=== PATIENT | male | born 1950 | race Caucasian/White ===

== ENCOUNTER → 2016-06-27 | Outpatient (CLI) | payer OTHER, BC ==
[~2016-06-27] MED LIST: ALLOPURINOL 10100 M1 PO; ASPIRIN325; ATENOLOL; ATENOLOL 50MG T50 M1 PO; CLARITIN-D 24 H1 TA1 PO; COLCRYS0.6 MG PO; CRESTOR; FISH OIL 1,001000 M2 PO; FISHOIL; KEFLEX500 MG PO; LISINOPRIL40 MG PO; MEDROLDOSEPACK PO; NORCO 5-325 TA1 EACH PO; PRINIVIL; TERBINAFINE HCL30 GM TOP
== END ==
LOC: OPONC 11:43
DX: L03.90 Cellulitis, unspecified (principal); D72.829 Elevated white blood cell count, unspecified
CPT/HCPCS: 95000

== ENCOUNTER → 2016-06-28 | Outpatient (CLI) | payer OTHER, BC | LOC: OPONC 11:56 | DX: L03.90 Cellulitis, unspecified (principal); D72.829 Elevated white blood cell count, unspecified | CPT/HCPCS: 95000 ==

== ENCOUNTER → 2016-07-22 | Outpatient (CLI) | payer OTHER, BC | LOC: HYPER 07:16 | DX: L97.821 Non-pressure chronic ulcer of other part of left lower leg limited to breakdown of skin (principal); L03.116 Cellulitis of left lower limb; I89.1 Lymphangitis; M10.9 Gout, unspecified; I10 Essential (primary) hypertension; I25.10 Atherosclerotic heart disease of native coronary artery without angina pectoris; I25.2 Old myocardial infarction; M19.90 Unspecified osteoarthritis, unspecified site; E78.5 Hyperlipidemia, unspecified; Z87.891 Personal history of nicotine dependence ==

== ENCOUNTER → 2021-01-09 | Outpatient (CLI) | payer OTHER, BC ==
[~2021-01-09] MED LIST changes: +ALLOPURINOL 30300 M1 PO; -ASPIRIN325; +ASPIRIN325 PO; +ATENOLOL 50MG T50 MG PO; +CEPHALEXIN500 MG PO; +CLARITIN10 MG PO; +FISH OIL 1,0001 EAC9 PO; +LAMISIL AT 1% C12 G1 TOP; +REPATHA PU420 MG/3.5 SUBQ; +TURMERIC1 GM PO; +ZESTRIL40 MG PO; +[UNRECOGNIZED DRUG - OTHER]
== END ==
LOC: SJCVCIMAG
PROVIDERS: ATTEND Internal Medicine
DX: I65.23 Occlusion and stenosis of bilateral carotid arteries (principal); I05.9 Rheumatic mitral valve disease, unspecified; I11.9 Hypertensive heart disease without heart failure; E78.5 Hyperlipidemia, unspecified; I25.10 Atherosclerotic heart disease of native coronary artery without angina pectoris

== ENCOUNTER → 2021-01-10 | Outpatient (CLI) | payer OTHER, BC ==
[~2021-01-10] MED LIST changes: +PACERONE 200 M200 M1 PO
[2021-01-10 09:01] LABS: ABSOLUTE NEUTROPHILS 3.8 thou/uL (1.4-8.2); BASOPHILS 0.6 % (0.0-2.0); EOSINOPHILS 5.4 % (0.0-3.0); HEMATOCRIT 40.4 % (42.0-52.0); HEMOGLOBIN 13.8 gm/dL (14.0-18.0); LYMPHOCYTES 27.7 % (24.0-44.0); MCH 34.3 pg (26.0-34.0); MCHC 34.1 g/dL (28.0-37.0); MCV 100.5 fL (80.0-100.0); PLATELET COUNT 172 thou/uL (150-400); POLYS 57.3 % (36.0-66.0); RBC 4.02 mil/uL (4.50-6.00); RDW 13.3 % (10.5-14.5); WBC 6.6 thou/uL (4.0-11.0)
[2021-01-10 09:07] LABS: APTT 23.5 Seconds (24.5-32.8); INR 0.96; PROTIME 10.5 Seconds (10.5-12.1)
[2021-01-10 09:30] LABS: ALBUMIN 3.4 g/dL (3.4-5.0); CALCIUM 8.7 mg/dL (8.5-10.1); CREATININE 1.1 mg/dL (0.7-1.3); POTASSIUM 4.9 mmol/L (3.5-5.1); TOTAL BILIRUBIN 0.3 mg/dL (0.2-1.0); TOTAL PROTEIN 6.8 g/dL (6.4-8.2)
[2021-01-11 01:06] LABS: GLYCOHEMOGLOBIN (HGB A1C) 5.8 % (4.8-5.6)
== END ==
LOC: PAC 08:09
PROVIDERS: ATTEND Surgery Vascular Surgery
DX: Z01.812 Encounter for preprocedural laboratory examination (principal); E11.9 Type 2 diabetes mellitus without complications; Z95.5 Presence of coronary angioplasty implant and graft; Z79.82 Long term (current) use of aspirin

== ENCOUNTER → 2021-01-10 | Outpatient (CLI) | payer OTHER, BC | LOC: ULTRA 08:25 | PROVIDERS: ATTEND Surgery Vascular Surgery | DX: Z01.818 Encounter for other preprocedural examination (principal); I25.110 Atherosclerotic heart disease of native coronary artery with unstable angina pectoris ==

== ENCOUNTER 2021-01-17 06:27 | Inpatient (IN) | payer OTHER, BC ==
[~2021-01-17] VITALS: Ht 170.2 cm; Wt 108.4 kg
[2021-01-17] VITALS (41 sets, daily range): BP systolic 119–175; BP diastolic 48–78
[~2021-01-17 06:27] MED LIST changes: -PACERONE 200 M200 M1 PO
[2021-01-17 12:43] LABS: MCH 34.6 pg (26.0-34.0); MCHC 34.2 g/dL (28.0-37.0); MCV 101.1 fL (80.0-100.0); RBC 2.67 mil/uL (4.50-6.00); RDW 13.1 % (10.5-14.5); WBC 13.3 thou/uL (4.0-11.0)
[2021-01-17 12:47] LABS: HEMOGLOBIN 9.3 gm/dL (14.0-18.0)
[2021-01-17 12:58] LABS: APTT 22.9 Seconds (24.5-32.8); INR 1.33; PROTIME 14.3 Seconds (10.5-12.1)
[2021-01-17 13:31] LABS: POC BE 0 mmol/L (-2.0 to +3.0); POC CA IONIZED 4.1 mg/dL (4.5-5.3); POC GLUCOSE 185 mg/dL (70-99); POC HCO3 25.1 mmol/L (22.0-26.0); POC HEMOGLOBIN 8.8 g/dL (14.0-18.0); POC SODIUM 136 mmol/L (136-145); POC pCO2 43.4 mmHg (35.0-45.0)
[2021-01-17 13:31] LABS: POC BE -1 mmol/L (-2.0 to +3.0); POC CA IONIZED 3.9 mg/dL (4.5-5.3); POC GLUCOSE 179 mg/dL (70-99); POC HCO3 24.8 mmol/L (22.0-26.0); POC HEMOGLOBIN 10.9 g/dL (14.0-18.0); POC POTASSIUM 5.5 mmol/L (3.5-5.1); POC SODIUM 141 mmol/L (136-145); POC pCO2 47.9 mmHg (35.0-45.0); POC pH 7.322 (7.360-7.450)
[2021-01-17 13:31] LABS: POC BE -3 mmol/L (-2.0 to +3.0); POC CA IONIZED 4.2 mg/dL (4.5-5.3); POC GLUCOSE 203 mg/dL (70-99); POC HCO3 22.8 mmol/L (22.0-26.0); POC HEMOGLOBIN 8.8 g/dL (14.0-18.0); POC POTASSIUM 6.7 mmol/L (3.5-5.1); POC SODIUM 137 mmol/L (136-145); POC pH 7.332 (7.360-7.450)
[2021-01-17 13:31] LABS: POC BE -4 mmol/L (-2.0 to +3.0); POC CA IONIZED 4.7 mg/dL (4.5-5.3); POC GLUCOSE 133 mg/dL (70-99); POC HCO3 21.7 mmol/L (22.0-26.0); POC HEMOGLOBIN 11.6 g/dL (14.0-18.0); POC POTASSIUM 4.8 mmol/L (3.5-5.1); POC SODIUM 138 mmol/L (136-145); POC pCO2 40.6 mmHg (35.0-45.0); POC pH 7.335 (7.360-7.450)
[2021-01-17 13:31] LABS: POC BE -4 mmol/L (-2.0 to +3.0); POC CA IONIZED 4.6 mg/dL (4.5-5.3); POC GLUCOSE 190 mg/dL (70-99); POC HCO3 22.2 mmol/L (22.0-26.0); POC HEMOGLOBIN 11.2 g/dL (14.0-18.0); POC POTASSIUM 5.6 mmol/L (3.5-5.1); POC SODIUM 137 mmol/L (136-145); POC pCO2 43.5 mmHg (35.0-45.0); POC pH 7.315 (7.360-7.450)
[2021-01-17 13:32] LABS: POC BE -4 mmol/L (-2.0 to +3.0); POC CA IONIZED 4.8 mg/dL (4.5-5.3); POC GLUCOSE 157 mg/dL (70-99); POC HCO3 21.7 mmol/L (22.0-26.0); POC HEMOGLOBIN 8.5 g/dL (14.0-18.0); POC POTASSIUM 4.4 mmol/L (3.5-5.1); POC SODIUM 141 mmol/L (136-145); POC pCO2 42.9 mmHg (35.0-45.0); POC pH 7.313 (7.360-7.450)
[2021-01-17 13:32] LABS: POC BE -5 mmol/L (-2.0 to +3.0); POC CA IONIZED 4.7 mg/dL (4.5-5.3); POC GLUCOSE 128 mg/dL (70-99); POC HCO3 21.1 mmol/L (22.0-26.0); POC HEMOGLOBIN 9.9 g/dL (14.0-18.0); POC POTASSIUM 4.7 mmol/L (3.5-5.1); POC SODIUM 142 mmol/L (136-145); POC pCO2 41.8 mmHg (35.0-45.0); POC pH 7.311 (7.360-7.450)
[2021-01-17 14:18] LABS: HEMATOCRIT 33.5 % (42.0-52.0); MCH 34.4 pg (26.0-34.0); MCHC 33.9 g/dL (28.0-37.0); MCV 101.4 fL (80.0-100.0); RBC 3.31 mil/uL (4.50-6.00); RDW 13.2 % (10.5-14.5); WBC 16.7 thou/uL (4.0-11.0)
[2021-01-17 14:21] LABS: HEMOGLOBIN 11.4 gm/dL (14.0-18.0)
[2021-01-17 14:27] LABS: CALCIUM 7.6 mg/dL (8.5-10.1); CREATININE 1.2 mg/dL (0.7-1.3); MAGNESIUM 2.5 mg/dL (1.8-2.4); POTASSIUM 5.2 mmol/L (3.5-5.1)
--- NOTE | 2021-01-17 14:30 | NUR ---
recieved patient from the OR acc by anes and or staff, Dr Moya and jesus manuel. Pt sedated and on Vent. Placed on the monitor and hemodynamic monitoring system up. Monitor shows waveforms WNL. Anes stated that the SG was at 45 cm. ETT intact. Chest tubes to suction and abg's and lab done. Pt on a small amt of Levophed on arrival but was stopped. Bs @ 128. good output noted. Will cont to monitorand work toward POC to get pt extubated.
[2021-01-17 14:33] LABS: APTT 24.6 Seconds (24.5-32.8); INR 1.15; PROTIME 12.5 Seconds (10.5-12.1)
[2021-01-17 14:41] LABS: BE(vivo) -7.2 mmol/L (-2 to +3); HCO3 19.7 mmol/L (22.0-26.0); PCO2 45.4 mmHg (35.0-45.0); PO2 129.4 mmHg (80.0-100.0); sO2 98.1 % (92.0-98.0)
[2021-01-17 14:56] LABS: pH 7.256 (7.360-7.450)
--- NOTE | 2021-01-17 15:00 | NUR ---
Pt waking up shakes his head yes to pain and he is really diaphoretic. Fent. given. pt sbp is quite high hope this calm him down. Also nods yes to being hot very diaphoretic. We finally found a free standing fan. Pt resting. will cont to monitor.
--- NOTE | 2021-01-17 15:30 | NUR ---
Mr reynaga Aruna at the bedside. she was orientated to the room and the ubes and monitor. questions answered. ICU pmaphlet given with the 4 digit code. Gave her the number to call back to check on her .
--- NOTE | 2021-01-17 16:00 | NUR ---
The right jugular is bleeding a little Kenneth/ALTAGRACIA here to place a suture. Tegaderm placed. Dr Moya adjusted the SG.
--- NOTE | 2021-01-17 16:30 | NUR ---
Pt placed on cpap by RT he is tolerating it well. Still a problem with his BP but Cardene has been off and on.
[2021-01-17 17:11] LABS: BE(vivo) -10.9 mmol/L (-2 to +3); HCO3 16.7 mmol/L (22.0-26.0); PCO2 43.8 mmHg (35.0-45.0); PO2 82.4 mmHg (80.0-100.0); sO2 93.7 % (92.0-98.0)
--- NOTE | 2021-01-17 17:25 | NUR ---
ABG's called to Dr Moya and radha to extubate patient. Rt here and it's done FS placed at 50%. Pt alert and following caommands. 1800 Pt's called and she was given an update.
--- NOTE | 2021-01-17 19:00 | NUR ---
Report given to
[2021-01-18] VITALS: BP 135/56
[2021-01-18 04:01] VITALS: BP 155/67
[2021-01-18 06:41] LABS: HEMATOCRIT 31.2 % (42.0-52.0); HEMOGLOBIN 10.6 gm/dL (14.0-18.0); MCH 34.2 pg (26.0-34.0); MCHC 33.9 g/dL (28.0-37.0); MCV 100.9 fL (80.0-100.0); RBC 3.09 mil/uL (4.50-6.00); RDW 13.3 % (10.5-14.5); WBC 12.9 thou/uL (4.0-11.0)
[2021-01-18 06:58] LABS: CALCIUM 7.8 mg/dL (8.5-10.1); CREATININE 1.1 mg/dL (0.7-1.3); MAGNESIUM 2.4 mg/dL (1.8-2.4)
[2021-01-18 06:59] LABS: POTASSIUM 4.4 mmol/L (3.5-5.1)
--- NOTE | 2021-01-18 09:43 | NUR ---
0700-ASSUMED CARE OF PT.--VW 0720-OOB TO CHAIR W MUCH ASSIST NEEDED X2.--VW ATE 1 YOGURT.MED FOR PAIN. AT BEDSIDE. MUCH ENC & DIRECTION NEEDED.--VW
--- NOTE | 2021-01-18 09:43 | EKG ---
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 : 1950 Requested By: Jose Moore Order Number: [id number] MD: Rodney Mcdonnell Measurements Intervals [place] Rate: 85 P: -5 NC: 142 QRS: -15 QRSD: 83 T: 55 QT: 385 QTc: 458 Interpretive Statements Sinus rhythm Inferior infarct, old Compared to ECG 01/02/2021 09:43:17 Poor R-wave progression no longer present Myocardial infarct finding still present Electronically Signed On 01-18-2021 9:43:25 CDT by Rodney Mcdonnell [email or web address] <ELECTRONICALLY SIGNED> By: Rodney Mcdonnell MD, [facility] 01/18/2143 1443 1443 Rodney Mcdonnell MD, FACC /EPI
--- NOTE | 2021-01-18 09:48 | EKG ---
[place] [address] [address] [facility] [address] [place] 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 : 1950 Requested By: Jose Moore Order Number: [id number] MD: Rodney Mcdonnell Measurements Intervals [place] Rate: 88 P: -25 [place]: 121 QRS: -27 QRSD: 78 T: 163 QT: 385 QTc: 466 Interpretive Statements Sinus rhythm Abnormal R-wave progression, early transition Inferior infarct, old Compared to ECG 01/17/2021 14:43:32 Myocardial infarct finding still present Electronically Signed On 01-18-2021 9:48:30 CDT by Rodney Mcdonnell [email or web address] <ELECTRONICALLY SIGNED> By: Rodney Mcdonnell MD, [facility] 01/18/2148 0 0 Rodney Mcdonnell MD, FACC /EPI
--- NOTE | 2021-01-18 12:11 | O ---
[facility] [place] [address] OPERATIVE REPORT Name: CHARLY RESTREPO Room #: 248-P ADM IN M.R.#: [id number] Admission: 01/17/21 Attend Phys: Abiodun Moya MD Discharge: Date of : 50 Report #: [id number] THIS REPORT FOR: cc: Keyur Davis MD, Christopher B. MD Forman,Abiodun Resendez MD ~ DATE OF SERVICE: 01/17/2021 PREOPERATIVE DIAGNOSIS: Coronary artery disease. POSTOPERATIVE DIAGNOSIS: Coronary artery disease. OPERATION: Coronary artery bypass x 3 including left internal mammary artery to left anterior descending artery, saphenous vein to marginal and saphenous vein to posterior descending artery and endoscopic harvest, right greater saphenous vein. SURGEON: Abiodnu Moya MD TAG MACHINE OPERATOR: ALTAGRACIA Pantoja. ANESTHESIA: General. INDICATIONS: The patient is a 70-year-old with important in-stent stenosis in the right coronary artery. There was also a 60% distal left main lesion and moderate stenosis in the mid LAD. Left ventricular function is satisfactory. The patient's comfort filler is Dr. Juan Zeng. FINDINGS AND TECHNIQUE: After general anesthesia was established, saphenous vein was harvested from the right leg using an endoscopic approach. It was then prepared for use as a conduit. Exposure was obtained through median sternotomy. Left internal mammary artery was harvested from chest wall. Pericardial well was made. Cannulation sutures were placed. Heparin was given. Aorta was cannulated. Right atrium was cannulated. Cardioplegia needle was positioned in the aortic root. Retrograde cardioplegia catheter was placed in the coronary sinus. Cardiopulmonary bypass was established. Aorta was cross clamped. Antegrade and retrograde cardioplegia were given. Ice was poured in the pericardial well. The heart was stopped. During electromechanical arrest, the distal anastomoses were performed. An end-to-side anastomosis was made between vein and the posterior descending artery. Cold cardioplegia was given. Separate segment of vein was sewn in end-to-side fashion to the large second marginal artery. Cold cardioplegia was given. Left internal mammary artery was sewn in end-to-side fashion to left [facility] [address] [place] [address] OPERATIVE REPORT Name: CHARLY RESTREPO Room #: 248-P [facility] IN M.R.#: [id number] Admission: 01/17/21 Attend Phys: Abiodun Moya MD Discharge: Date of : 50 Report #: [id number] anterior descending artery. Patency of this vessel was checked with the temperature technique. Cold cardioplegia was given. Two proximal anastomoses were performed. When these were complete, warm retrograde cardioplegia was given followed by warm continuous blood through the coronary sinus. When this infusion was complete, the crossclamp was removed. De-airing maneuvers were performed. The anastomoses were inspected and found to be satisfactory. As the patient warmed, nice cardiac activity resumed. Chest tubes and pacing wires were placed. A marker was placed around the proximal anastomoses. The patient was warmed. He was weaned from cardiopulmonary bypass. Venous cannula was removed. Protamine was given. The aortic cannula was removed. Flows were measured in the bypass grafts. When hemostasis was satisfactory, chest was irrigated with antibiotic solution and closed in the usual fashion. The patient was taken to the Intensive Care Unit in good condition having tolerated the procedure well. All counts were reported as correct. <ELECTRONICALLY SIGNED> By: Abiodun Moya MD 01/18/21 1211 1328 1337 Abiodun Moya MD /nt
[2021-01-18 16:15] VITALS: BP 156/64
[2021-01-18 16:24] VITALS: BP 153/66
[2021-01-19 05:19] LABS: HEMATOCRIT 25.7 % (42.0-52.0); MCH 35.1 pg (26.0-34.0); MCHC 34.9 g/dL (28.0-37.0); MCV 100.6 fL (80.0-100.0); RBC 2.56 mil/uL (4.50-6.00); RDW 13.7 % (10.5-14.5); WBC 12.4 thou/uL (4.0-11.0)
[2021-01-19 05:36] LABS: GLYCOHEMOGLOBIN (HGB A1C) 6.2 % (4.8-5.6)
[2021-01-19 09:02] LABS: CALCIUM 7.9 mg/dL (8.5-10.1); CREATININE 1.6 mg/dL (0.7-1.3); POTASSIUM 4.3 mmol/L (3.5-5.1)
--- NOTE | 2021-01-19 09:26 | NUR ---
ASSUMED CARE OF PT AT 0700. DR HAJI AT BEDSIDE AT 0819. PLEURAL CHEST TUBE AND PACER WIRES REMOVED. PT TOLERATED WELL. NEW ORDERS GIVEN, WILL FOLLOW POC.
--- NOTE | 2021-01-19 13:23 | NUR ---
DR HURST AT BEDSIDE AT 1130. NO NEW ORDERS GIVEN. WILL CONTINUE TO FOLLOW POC.
--- NOTE | 2021-01-19 18:39 | NUR ---
FAMILY MEMBERS AT BEDSIDE THROUGHOUT THE DAY. ANSWERED ALL QUESTIONS AND EXPLAINED ALL CARES GIVEN. PT PROGRESSING TOWARDS POC MISTYIATKAYLEE.
--- NOTE | 2021-01-20 04:02 | NUR ---
Pt's called. Stated pt had called her saying he was uncomfortable and needed to get out of ICU. Pt has repeatedly c/o of ICU bed being uncomfortable tonight despite being repositioned. Has declined pain medication. Have attempted to call [facility] for different bed but have been unable to reach them.
--- NOTE | 2021-01-20 08:34 | NUR ---
RD consult. S/P CABG x 3 on 01/17. Diet has advanced. Will address nutrition education needs once transferred out ICU and at more appropriate time
--- NOTE | 2021-01-20 13:12 | NUR ---
RECIEVED REPORT FROM SUDHEER BUSH.
[2021-01-20 14:06] VITALS: BP 129/54
--- NOTE | 2021-01-20 16:09 | NUR ---
Chart reviewed and case discussed with the care team. Pt is s/p CABGx3 and likely ready to transfer out of the ICU. He is a&ox4 and was living indep with his prior to admission. He is retired. He has a cpap but no other dme. He has 3 steps and steep grade to enter his home and 7 steps up to the bedroom. His pcp is Dr. Davis. Chest tube dc'd. Therapy is working with him and will likely recommend outpt cardiac rehab at [place]. Will follow along should dc needs arise.
--- NOTE | 2021-01-20 16:52 | NUR ---
DR CARMONA AND MYSELF ENCOURAGED PT TO AMBULATE AND GET OUT OF BED. PT AMBULATED ROOM AND WORKED WITH PT/OT. PT USED [employer]ENT[employer] SPIROMETER WELL AND TOLERATED PO. PT AND SPOUSE HOWEVER BECOMING UPSET THEY HAVE BEEN TOLD HE WILL GET A BED ON THE CCU FOR SEVERAL DAYS BUT NO BED HAS BECOME AVAILABLE. INFORM DEV OPS ENGINEER ANGELIC AND DAYA WONG THAT FAMILY IS UPSET ABOUT NOT GETTING BED ON CCU. PT CALLED DR. SCOTT ANSWERING SERVICE TO INFORM THE DR THAT HE HAS NOT GOTTEN A BED ON CCU OF YET. KEEP REASSURING PT AND SPOUSE THAT I HAVE CONTACTED THE DEV OPS ENGINEER AND DAYA LOAIZA AND SOON BED BOCOMES AVAILABLE I WILL LET THEM KNOW.
[2021-01-20 19:35] VITALS: BP 129/57
[2021-01-21 04:51] VITALS: BP 121/60
[2021-01-21 06:52] LABS: HEMOGLOBIN 9.1 gm/dL (14.0-18.0); MCH 34.8 pg (26.0-34.0); MCHC 33.8 g/dL (28.0-37.0); RBC 2.62 mil/uL (4.50-6.00); RDW 13.4 % (10.5-14.5); WBC 9.4 thou/uL (4.0-11.0)
[2021-01-21 07:07] LABS: CALCIUM 8.4 mg/dL (8.5-10.1); CREATININE 1.1 mg/dL (0.7-1.3); POTASSIUM 4.4 mmol/L (3.5-5.1)
[2021-01-21 07:20] VITALS: BP 123/59
[2021-01-21 11:10] VITALS: BP 114/63
[2021-01-21] MEDS ORDERED: PACERONE 200 M200 M1 PO (14:28)
[2021-01-21 15:19] VITALS: BP 114/63
[2021-01-21 15:30] VITALS: BP 132/55
--- NOTE | 2021-01-21 15:56 | EKG ---
[place] [address] [facility] [place] [address] ELECTROCARDIOGRAM REPORT Name: CHARLY RESTREPO Room #: 210-P [facility] IN M.R.#: [id number] Admission: 01/17/21 Attend Phys: Abiodun oMya MD Discharge: 01/21/21 Date of : 50 Report #: [id number] [facility] Test Date: 2021-01-21 Test Time: 13:16:49 Pat Name: CHARLY RESTREPO Department: Room: 210 P Gender: M Circuit Tester: MEENA : 1950 Requested By: Jose Moore Order Number: [id number] MD: Rodney Mcdonnell Measurements Intervals [place] Rate: 71 P: -5 CT: 174 QRS: -18 QRSD: 88 T: 59 QT: 418 QTc: 455 Interpretive Statements Sinus rhythm Abnormal R-wave progression, early transition Inferior infarct, old Compared to ECG 01/18/2021 07:41:12 No significant changes Electronically Signed On 01-21-2021 15:56:03 CDT by Rodney Mcdonnell [email or web address] <ELECTRONICALLY SIGNED> By: Rodney Mcdonnell MD, [facility] 01/21/21 1556 1316 Rodney Mcdonnell MD, FAC /EPI
--- NOTE | 2021-01-21 16:06 | NUR ---
TOOK OVER CARE OF PATIENT AT 0700. PATIENT RESTING COMFORTABLY IN BED AT THIS TIME. PLAN TO DISCHARGE TODAY AFTER CHEST XRAY, EKG, DIABETIC EDUCATION, AND REMOVAL OF BONNY DRAIN. DISCHARGE EDUCATION PROVIDED TO PATIENT AND SPOUSE PRESENT. PATIENT DENIES ANY QUESTIONS AND REPORTS HE WILL FOLLOW UP WITH HIS HEALTHCARE PROVIDERS. PATIENT DENIES CHEST PAIN, SHORTNESS OF AIR, DIZZINESS, HEADACHE, INCREASED SWELLING. PATIENT ALERT AND ORIENTATED. PATIENT DISCHARGED VIA PERSONAL VEHICLE WITH SPOUSE PRESENT.
== END 2021-01-21 15:55 | disposition home or self-care (01) | DRG 236 ==
LOC: PRE → TBA 06:27 → ICU 06:27 → TBA 06:27 → PRE 08:14 → ICU 13:56 → PRE 15:09 → ICU 01-18 17:44 → 2N 01-20 18:36
PROVIDERS: Hospitalist; Internal Medicine; Physician Assistant; ADMIT Surgery Vascular Surgery; ATTEND Surgery Vascular Surgery
DX: I25.10 Atherosclerotic heart disease of native coronary artery without angina pectoris (principal); I47.1 Supraventricular tachycardia; I10 Essential (primary) hypertension; E78.5 Hyperlipidemia, unspecified; M10.9 Gout, unspecified; K08.409 Partial loss of teeth, unspecified cause, unspecified class; E11.9 Type 2 diabetes mellitus without complications; G47.33 Obstructive sleep apnea (adult) (pediatric); D64.9 Anemia, unspecified; D72.829 Elevated white blood cell count, unspecified; Z88.8 Allergy status to other drugs, medicaments and biological substances; Z85.46 Personal history of malignant neoplasm of prostate; Z87.891 Personal history of nicotine dependence; I25.2 Old myocardial infarction; Z95.5 Presence of coronary angioplasty implant and graft; Z98.52 Vasectomy status; Z92.3 Personal history of irradiation; Z79.82 Long term (current) use of aspirin; Z79.899 Other long term (current) drug therapy
CPT/HCPCS: 10078; 10081; 10203; 47000; 47001; 47002; 47297; 48889; 50010; 50249; 50643; 50668; 50953; 51301; 52259; 52287; 53327; 53358; 54118; 56455; 56524; 56525; 56526; 56527; 56528; 56531; 56534; 56668; 56719; 56760; 56898; 57093; 58585; 58901; 58918; 62110; 62950; 65003; 65020; 65047; 65120; 65131; 65135; 83006

== ENCOUNTER → 2021-05-26 | Outpatient (CLI) | payer OTHER, BC ==
[~2021-05-26] MED LIST changes: +PACERONE 200 M200 M1 PO
== END ==
LOC: SJCVC 11:05
PROVIDERS: ATTEND Internal Medicine
DX: R94.31 Abnormal electrocardiogram [ECG] [EKG] (principal); I25.10 Atherosclerotic heart disease of native coronary artery without angina pectoris; I10 Essential (primary) hypertension; I65.23 Occlusion and stenosis of bilateral carotid arteries; E78.5 Hyperlipidemia, unspecified; I25.119 Atherosclerotic heart disease of native coronary artery with unspecified angina pectoris; G47.33 Obstructive sleep apnea (adult) (pediatric); E78.00 Pure hypercholesterolemia, unspecified; G47.30 Sleep apnea, unspecified; I47.1 Supraventricular tachycardia; Z72.89 Other problems related to lifestyle; Z87.891 Personal history of nicotine dependence; Z79.82 Long term (current) use of aspirin; Z79.899 Other long term (current) drug therapy; Z88.2 Allergy status to sulfonamides; Z88.8 Allergy status to other drugs, medicaments and biological substances